=== PATIENT | female | born 2005 | race Caucasian/White ===

== ENCOUNTER 2023-12-23 02:23 | Emergency (ER) | payer OTHER ==
[~2023-12-23] VITALS: Ht 157.5 cm; Wt 81.6 kg
[2023-12-23] MEDS: NS 1,000 ML IV ONE (04:01)
[2023-12-23 04:04] LABS: BASO % 0.2 % (0.0-1.0); EOS # 0.1 10^3/uL (0.0-0.5); EOS % 0.7 % (0.0-3.0); HEMATOCRIT 35.2 % (36.0-47.0); LYMPH % 16.1 % (24.0-44.0); MEAN CORPUSCULAR HEMOGLOBIN 28.6 pg (27.0-33.0); MEAN CORPUSCULAR HGB CONC 34.1 g/dl (32.0-36.5); MEAN CORPUSCULAR VOLUME 83.8 fl (80.0-96.0); MONO # 0.8 10^3/uL (0.0-0.8); MONO % 6.2 % (2.0-8.0); NEUTROPHILS # 9.4 10^3/uL (1.5-8.5); NEUTROPHILS % 76.5 % (36.0-66.0); PLATELET COUNT, AUTOMATED 191 10^3/uL (150-450); WHITE BLOOD COUNT 12.3 10^3/uL (4.0-10.0)
[2023-12-23 04:25] LABS: INR 1.04; PARTIAL THROMBOPLASTIN TIME 23.9 SECONDS (24.8-34.2); PROTHROMBIN TIME 13.3 SECONDS (12.5-14.5)
[2023-12-23 04:28] LABS: CK-MB VALUE MASS < 1.0 NG/ML (<3.6); LIPASE 26 U/L (12-53)
[2023-12-23 04:31] LABS: ALBUMIN 3.5 G/DL (3.2-5.2); ALKALINE PHOSPHATASE 61 U/L (46-116); ALT/SGPT 35 U/L (7.0-40); AST/SGOT 24 U/L (<34); BILIRUBIN,DIRECT < 0.1 MG/DL (<0.4); BILIRUBIN,TOTAL 0.3 MG/DL (0.3-1.2); BLOOD UREA NITROGEN 9 MG/DL (9-23); CALCIUM LEVEL 8.8 MG/DL (8.5-10.1); CARBON DIOXIDE LEVEL 21 MMOL/L (20-31); CHLORIDE LEVEL 110 MMOL/L (98-107); CPK CREATINE PHOSPHOKINASE 41 U/L (34-145); CREATININE FOR GFR 0.61 MG/DL (0.55-1.30); GLUCOSE, FASTING 94 MG/DL (60-100); MB/CK RELATIVE INDEX 2.43 (< OR =4); POTASSIUM SERUM 3.9 MMOL/L (3.5-5.1); SODIUM LEVEL 139 MMOL/L (136-145); TOTAL PROTEIN 6.9 G/DL (5.7-8.2)
[2023-12-23 04:33] LABS: THYROID STIMULATING HORMONE 17.364 uIU/ML (0.48-4.17)
[2023-12-23 04:52] LABS: HCG, SERUM QUANTITATIVE 36090.6 MIU/ML (<4.2)
[2023-12-23] MEDS ORDERED: ISOVUE-370 76% 100ML VIAL As Ordered ONE (04:54)
[2023-12-23 06:01] LABS: CK-MB VALUE MASS < 1.0 NG/ML (<3.6)
[2023-12-23 06:03] LABS: CPK CREATINE PHOSPHOKINASE 31 U/L (34-145); MB/CK RELATIVE INDEX 3.22 (< OR =4)
[2023-12-23 06:30] VITALS: BP 124/69; TEMP 98; O2SAT 98
== END 2023-12-23 06:53 | disposition home or self-care (01) ==
LOC: M ED 02:23
DX: O99.281 Endocrine, nutritional and metabolic diseases complicating pregnancy, first trimester (principal); O46.91 Antepartum hemorrhage, unspecified, first trimester; Z3A.01 Less than 8 weeks gestation of pregnancy
CPT/HCPCS: 36415; 71275; 76815; 76817; 80048; 80076; 81001; 82550; 82553; 83690; 84439; 84443; 84484; 84702; 85025; 85610; 85730; 86140; 87086; 93005; 93041; 94760; 99285; Q9967